=== PATIENT | male | born 1995 | race Caucasian/White ===

== ENCOUNTER 2017-05-17 12:05 | Emergency (ER) | payer OTHER ==
[2017-05-17 14:40] VITALS: BP 149/75
--- NOTE | 2017-05-17 15:06 | UC ---
General HPI - HPI Summary HPI Summary: Patient presents with an unremarkable past medical history. He presents with 2- 3 day onset complaints of fever, chills, generalized body aches, sore throat, cough and chest congestion. He states other class mates have been ill with similar symptoms. - History of Current Complaint Chief Complaint: UCRespiratory Stated Complaint: FEVER, AND SORE THROAT Time Seen by Provider: 05/17/17 14:44 Hx Obtained From: Patient Onset/Duration: Gradual Onset, Lasting Days Onset Severity: Mild Current Severity: Moderate Pain Intensity: 3 Associated Signs & Symptoms: Positive: Cough, Dizziness, Fever, Headache, Nausea , Vomiting - Allergy/Home Medications Allergies/Adverse Reactions: Allergies Allergy/AdvReac Type Severity Reaction Status Date / Time No Known Allergies Allergy Verified 05/17/17 14:40 Home Medications: Home Medications Acetaminophen [Tylenol] 650 mg PO Q6H PRN 05/17/17 [History Confirmed 05/17/17] PMH/Surg Hx/FS Hx/Imm Hx Previously Healthy: Yes - Surgical History Surgical History: None - Family History Known Family History: Positive: None - Social History Occupation: Student Lives: Dormitory/Roommates Alcohol Use: Weekly Substance Use Type: Marijuana Substance Use Comment - Amount & Last Used: daily lastv used 2/2 Smoking Status (MU): Never Smoked Tobacco Review of Systems Constitutional: Fever, Chills, Fatigue Skin: Negative Eyes: Negative ENT: Sore Throat Respiratory: Cough Cardiovascular: Negative Gastrointestinal: Negative Genitourinary: Negative Motor: Negative Neurovascular: Negative Musculoskeletal: Negative Neurological: Negative Psychological: Negative, Anxious Is Patient Immunocompromised?: No All Other Systems Reviewed And Are Negative: Yes Physical Exam Triage Information Reviewed: Yes Appearance: Ill-Appearing Vital Signs: Initial Vital Signs Temp 99.1 F 05/17/17 14:33 Pulse 106 05/17/17 14:33 Resp 18 05/17/17 14:33 BP 149/75 05/17/17 14:33 Pulse Ox 99 05/17/17 14:33 Vital Signs Reviewed: Yes Eye Exam: Normal ENT Exam: Normal Neck exam: Normal Neck: Positive: 1 Respiratory Exam: Normal Cardiovascular Exam: Normal Abdominal Exam: Normal Skin Exam: Normal Course/Dx - Course Course Of Treatment: Patient presents with an unremarkable past medical history.He presents today with reporting of influenze like illness and the clinical findings are consistent with the flu. His vital signs reveal a t-99.1, and P-106. He was rolerating fluids, and solid foods. He was taken out of school this week and told to isolate himself as much as possible and wear a mask if he needs to go out. He verbalized understanding of and in agreement with the discharge plan. - Differential Dx - Multi-Symptom Differential Diagnoses: Other - influnza Provider Diagnoses: influenza Discharge - Discharge Plan Condition: Stable Disposition: HOME Prescriptions: Oseltamivir CAP* [Tamiflu CAP*] 75 mg PO BID #10 cap Patient Education Materials: Influenza (DC) Forms: *School Release Referrals: [facility] - Marvin HOOVER [Primary Care Provider] -
== END 2017-05-17 15:24 | disposition home or self-care (01) ==
LOC: UCEAST 12:05
DX: J11.1 Influenza due to unidentified influenza virus with other respiratory manifestations (principal); F12.90 Cannabis use, unspecified, uncomplicated
CPT/HCPCS: 99201; G0463